=== PATIENT | male | born 1960 | race Caucasian/White ===

== ENCOUNTER 2020-08-06 08:19 | Emergency (ER) | payer MEDICAID ==
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
[2020-08-06] MEDS ORDERED: Nitroglycerin/D5W 25 MG/250 ML BOTTLE IV SCH (08:45)
--- NOTE | 2020-08-06 09:30 | CR ---
Chest: Frontal view of the chest was obtained utilizing portable technique. Comparison: No prior chest imaging is available. Heart is enlarged. Upper mediastinum is normal. Lungs are clear and no acute parenchymal change. Mild endplate spurring is seen within the spine. Impression: 1. Cardiomegaly. Nothing acute is otherwise seen on portable chest x-ray. Diagnostic code #2.
== END 2020-08-06 09:00 | disposition home or self-care (01) ==
LOC: JD.ED 08:19
DX: I11.0 Hypertensive heart disease with heart failure (principal); I50.9 Heart failure, unspecified; E87.1 Hypo-osmolality and hyponatremia; R78.0 Finding of alcohol in blood; I25.10 Atherosclerotic heart disease of native coronary artery without angina pectoris; E78.00 Pure hypercholesterolemia, unspecified; I25.2 Old myocardial infarction; J44.9 Chronic obstructive pulmonary disease, unspecified; Z72.0 Tobacco use; Z88.0 Allergy status to penicillin
CPT/HCPCS: 36415; 71045; 71045-26; 80053; 80307; 82553; 83735; 83880; 84484; 93005; 93010; 99284; 99285-25